=== PATIENT | female | born 1940 | race Two or more races ===

== ENCOUNTER 2019-11-02 13:44 | Emergency (ER) | payer OTHER, MEDICAID ==
[~2019-11-02] VITALS: Ht 157.5 cm; Wt 101.6 kg
--- NOTE | 2019-11-02 14:17 | NUR ---
JER FROM HOME TO ER BED 7. AAOX4. NOT IN RESP DISTRESS, BREATHING EVEN AND UNLABORED. BROUGHT IN FOR CHEST PAIN AND DIFFICULTY BREATHING STARTED YESTERDAY. PAIN IS RATE 6/10 IN THE MID CHEST SINCE YESTERDAY 6/10 FEELING OF TIGHTNESS WHICH IS CAUSING HER TO HAVE DIFFICULTY BREATHING. PT REPORTS THAT SHE HAS A R SHOULDER SURGERY IN [place]. PT IS ALSO REPORTING PAIN ON R HIP EXTENDING TO R THIGH. PT IS NOTED SATTING @ 98% ON RA. AT BEDSIDE FOR EVAL. ORDERS RECEIVED NOTED AND CARRIED OUT
[2019-11-02 15:17] LABS: BASOPHILS # (AUTO) 0.1 /CMM (0.0-0.2); BASOPHILS % (AUTO) 0.8 % (0.0-2.0); EOSINOPHILS % (AUTO) 3.1 % (0.0-6.0); HEMATOCRIT 38 % (33-45); HEMOGLOBIN 12.5 g/dL (11.5-14.8); LYMPHOCYTES # (AUTO) 0.8 /CMM (0.8-4.8); LYMPHOCYTES % (AUTO) 9.9 % (20.0-44.0); MEAN CORPUSCULAR HGB CONC 33 g/dl (31.0-36.0); MEAN CORPUSCULAR VOLUME 96 fL (82-100); MONOCYTES # (AUTO) 0.8 /CMM (0.1-1.30); MONOCYTES % (AUTO) 10.2 % (2.0-12.0); NEUTROPHILS # (AUTO) 6.3 /CMM (1.8-8.9); PLATELET COUNT (AUTO) 187 /CMM (150-450); RED BLOOD CELL COUNT(AUTO) 3.97 MIL/uL (4.0-5.2); WHITE BLOOD COUNT (AUTO) 8.2 K/uL (4.3-11.0)
[2019-11-02 15:41] LABS: CALCIUM, SERUM 8.6 mg/dL (8.5-10.1); CARBON DIOXIDE 30 mmol/L (21-32); CHLORIDE 105 mmol/L (98-107); CREATININE 0.8 mg/dL (0.6-1.3); GLUCOSE 96 mg/dL (74-106); POTASSIUM 4.1 mmol/L (3.5-5.1); SODIUM SERUM 139 mmol/L (136-145); UREA NITROGEN, BLOOD 23 mg/dL (7-18)
[2019-11-02 15:43] LABS: ALANINE AMINOTRANSFERASE 30 U/L (12-78); ALBUMIN 3.2 g/dL (3.4-5.0); ALKALINE PHOSPHATASE 97 U/L (46-116); ASPARTATE AMINOTRANSFERASE 36 U/L (15-37); B-TYPE NATRIURETIC PEPTIDE 415 PG/ML (0-125); BILIRUBIN,DIRECT 0.1 mg/dL (0.0-0.2); BILIRUBIN,TOTAL 0.5 mg/dL (0.2-1.0); TOTAL PROTEIN, SERUM 6.7 g/dL (6.4-8.2)
[2019-11-02] MEDS ORDERED: IOHEXOL-350 100 ML VIAL IV ONE (16:15)
[2019-11-02] MEDS ORDERED: IV NS 0.9% 250 ML IV ONE (16:15)
--- NOTE | 2019-11-02 16:40 | NUR ---
BACK FROM CT ON [place]
--- NOTE | 2019-11-02 17:39 | NUR ---
CALLED [facility] TO INITATE TRANSFER
--- NOTE | 2019-11-02 17:40 | NUR ---
DAUGHTER UPDATED REGARDING THE PATIENT.
[2019-11-02] MEDS ORDERED: CEFTRIAXONE 1GM BAG (ER ONLY) 50 ML IV ONE (18:00)
[2019-11-02] MEDS ORDERED: CEFTRIAXONE 1 G in IV D5W 50 ML IV ONE (18:00)
[2019-11-02] MEDS ORDERED: IV NS 0.9% 500 ML BAG IV ONE (18:00)
[2019-11-02] MEDS ORDERED: AZITHROMYCIN 500 MG in IV D5W 250 ML IV ONE (18:00)
--- NOTE | 2019-11-02 18:00 | NUR ---
THIERNO RAE SPEAKING WITH DR. COOK.
--- NOTE | 2019-11-02 18:01 | NUR ---
COVID SWAB DONE AND SENT TO LAB
--- NOTE | 2019-11-02 18:02 | NUR ---
jacques squires left contact number. [phone]
--- NOTE | 2019-11-02 18:24 | NUR ---
LAB CALLED COVID-19 NEG. (-)
--- NOTE | 2019-11-02 18:42 | NUR ---
MD MADE AWARE THAT PT'S BP IS NOTED 164/83. VERBAL ORDER RECEIVED FROM MD TO GIVE AMLODIPINE 5MG PO X 1 DOSE. NOTED AND CARRIED OUT
[2019-11-02] MEDS ORDERED: AMLODIPINE BESYLATE 5 MG TABLET ONE (18:45)
--- NOTE | 2019-11-02 18:57 | NUR ---
SPOKE WITH HOOKER OFF, PATRICIA. PT ACCEPTED AT [facility] ER CALL [phone] FOR REPORT[address]. VU. [facility] P/U @ [id number]
[2019-11-02] MEDS ORDERED: AMLODIPINE BESYLATE 5 MG TABLET PO ONE (19:00)
[2019-11-02 19:35] VITALS: BP 151/83
--- NOTE | 2019-11-02 19:35 | NUR ---
REPORT GIVEN TO SHANIA MARTINEZ FOR [facility].
--- NOTE | 2019-11-02 20:00 | NUR ---
prn #[id number] at bedside for pt transport to [facility]. report given. pt is in stable condition for transport.
--- NOTE | 2019-11-02 20:12 | NUR ---
pt left on gurney with 2 ambulance staff on stable on condition. nad noted.
== END 2019-11-02 20:12 | disposition short-term general hospital (02) ==
LOC: ER 13:48
DX: J18.9 Pneumonia, unspecified organism (principal); Z20.828 Contact with and (suspected) exposure to other viral communicable diseases; Z96.612 Presence of left artificial shoulder joint; Z96.611 Presence of right artificial shoulder joint; I11.9 Hypertensive heart disease without heart failure; Z88.6 Allergy status to analgesic agent; E78.00 Pure hypercholesterolemia, unspecified; I31.3 Pericardial effusion (noninflammatory); M47.814 Spondylosis without myelopathy or radiculopathy, thoracic region
CPT/HCPCS: 36415; 71045; 71275; 80048; 80076; 83605; 83880; 84145; 84484; 85025; 85378; 87040 ×2; 87426; 93005; 96365; 96367; 99285; C9803; J0456; J0696; J7040; J7050; J7060; Q9967; U0003